=== PATIENT | female | born 2000 | race Native Hawaiian/Other Pacific Islander ===

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

== ENCOUNTER 2021-06-27 08:35 | Outpatient (CLI) | payer OTHER | END 2021-06-27 19:28 | disposition home or self-care (01) | LOC: LAB 08:35 | PROVIDERS: ATTEND Nurse Practitioner Family | DX: U07.1 COVID-19 (principal); R05 Cough; R50.9 Fever, unspecified; Z11.52 Encounter for screening for COVID-19 | CPT/HCPCS: 87635; G2023; U0003 ==

== ENCOUNTER 2022-12-13 12:18 | Emergency (ER) | payer BC ==
[~2022-12-13] VITALS: Ht 162.6 cm; Wt 58.1 kg
[2022-12-13 12:41] VITALS: BP 123/79; TEMP 98.2
== END 2022-12-13 15:55 | disposition home or self-care (01) ==
LOC: ED 12:18
DX: R10.32 Left lower quadrant pain (principal)
CPT/HCPCS: 81002; 81025; 99282

== ENCOUNTER 2023-04-28 16:42 | Emergency (ER) | payer OTHER ==
[~2023-04-28] VITALS: Ht 162.6 cm; Wt 59.4 kg
[2023-04-28 16:55] VITALS: TEMP 97.6
[2023-04-28 17:15] LABS: PLATELET COUNT 154 K/uL (152-353)
[2023-04-28 17:21] LABS: POTASSIUM 3.8 mmol/L (3.6-5.2)
[2023-04-28 18:30] VITALS: BP 100/40
== END 2023-04-28 19:41 | disposition still patient (30) ==
LOC: ED 16:42
PROVIDERS: Family Medicine
DX: O21.0 Mild hyperemesis gravidarum (principal); E86.0 Dehydration; Z3A.00 Weeks of gestation of pregnancy not specified
CPT/HCPCS: 36415; 80053; 85027; 96361; 96374; 99284; J2405